=== PATIENT | male | born 1955 | race African-American/Black ===

== ENCOUNTER 2023-04-22 00:17 | Inpatient (IN) | payer MEDICARE, OTHER ==
[~2023-04-22] VITALS: Ht 121.9 cm; Wt 73.5 kg
[2023-04-22] MEDS ORDERED: PANTOPRAZOLE 40 MG VIAL ONE ×2 (00:48→08:35)
[2023-04-22] MEDS: PANTOPRAZOLE 40 MG VIAL IV ONE (00:49)
[2023-04-22 00:51] LABS: BASOPHILS % (AUTO) 0.3 % (0.0-2.0); EOSINOPHILS % (AUTO) 0.3 % (0.0-6.0); HEMATOCRIT 48 % (39-51); HEMOGLOBIN 15.8 g/dL (13.5-17.5); LYMPHOCYTES # (AUTO) 0.9 K/uL (0.8-4.8); LYMPHOCYTES % (AUTO) 8.8 % (20.0-44.0); MEAN CORPUSCULAR HEMOGLOBIN 29 PG (26.0-33.0); MEAN CORPUSCULAR HGB CONC 33 g/dl (31.0-36.0); MEAN CORPUSCULAR VOLUME 90 fL (80-96); MONOCYTES # (AUTO) 0.7 K/uL (0.1-1.30); MONOCYTES % (AUTO) 6.7 % (2.0-12.0); NEUTROPHILS # (AUTO) 8.2 K/uL (1.8-8.9); NEUTROPHILS % (AUTO) 83.9 % (43.0-81.0); PLATELET COUNT (AUTO) 261 K/uL (150-450); RED BLOOD CELL COUNT(AUTO) 5.39 MIL/uL (4.5-6.0); RED CELL DISTRIBUTION WIDTH 18.2 % (11.5-15.0); WHITE BLOOD COUNT (AUTO) 9.8 K/uL (4.3-11.0)
[2023-04-22 01:00] LABS: CALCIUM, SERUM 9.2 mg/dL (8.5-10.1); CARBON DIOXIDE 25 mmol/L (21-32); CHLORIDE 89 mmol/L (98-107); CREATININE 3.1 mg/dL (0.6-1.3); GLUCOSE 72 mg/dL (74-106); POTASSIUM 3.1 mmol/L (3.5-5.1); SODIUM SERUM 130 mmol/L (136-145); UREA NITROGEN, BLOOD 57 mg/dL (7-18)
[2023-04-22 01:12] LABS: ALANINE AMINOTRANSFERASE 56 U/L (12-78); ALBUMIN 3.4 g/dL (3.4-5.0); ALKALINE PHOSPHATASE 197 U/L (46-116); ASPARTATE AMINOTRANSFERASE 50 U/L (15-37); BILIRUBIN,TOTAL 3.7 mg/dL (0.2-1.0); LIPASE 14 U/L (16-77); NT-PRO BNP > 25000 pg/mL (0-125); TOTAL PROTEIN, SERUM 8.3 g/dL (6.4-8.2)
[2023-04-22] MEDS: POTASSIUM CHLORIDE 20 MEQ TAB.PRT.SR PO ONE (01:30)
[2023-04-22] MEDS ORDERED: POTASSIUM CHLORIDE 20 MEQ TAB.PRT.SR PO ONE (03:05)
[2023-04-22] MEDS ORDERED: Z GUARD REMEDY 4 OZ OINT TP PRN (04:30)
[2023-04-22] MEDS ORDERED: ONDANSETRON HCL/PF 4 MG/2 ML VIAL IVP PRN (04:30)
[2023-04-22] MEDS: ZOSYN IVPB 2.25 G in IV D5W 50ml IV SCH (06:23)
[2023-04-22] MEDS ORDERED: MORPHINE SULFATE INJ 4 MG/ML DISP.SYRIN IV PRN (06:30)
[2023-04-22 08:30] VITALS: BP 140/90; TEMP 97.7; O2SAT 98
[2023-04-22] MEDS: PANTOPRAZOLE 40 MG VIAL IV SCH (08:39)
[2023-04-22 10:00] VITALS: BP 120/90; TEMP 97.5; O2SAT 95
[2023-04-22 12:00] VITALS: BP 141/71; TEMP 97.6; O2SAT 94
[2023-04-22 16:08] VITALS: BP 143/98; TEMP 97.9; O2SAT 99
[2023-04-22] MEDS ORDERED: DEXTROSE 50%-WATER 50 ML DISP.SYRIN IV PRN (17:00)
[2023-04-22] MEDS: BLOOD SUGAR DIAGNOSTIC 1 EACH STRIP IN SCH (17:32)
[2023-04-22] MEDS: IV D5/ 0.9% NACL 1,000 ML IV PRN (17:38)
[2023-04-22 20:00] VITALS: BP 143/98; TEMP 97.9; O2SAT 99
[2023-04-22 21:55] VITALS: BP 108/79; TEMP 97.9; O2SAT 100
[2023-04-22] MEDS: INSULIN REGULAR, HUMAN 100 UNIT/ML 3 ML VIAL SQ PRN (22:35)
[2023-04-22] MEDS ORDERED: BISACODYL SUPP (10 MG) 10 MG/SUPP.RECT SUPP.RECT RC PRN (23:00)
[2023-04-22] MEDS ORDERED: ONDANSETRON HCL/PF 4 MG/2 ML VIAL IV PRN (23:00)
[2023-04-23] VITALS (7 sets, daily range): BP systolic 97–140; BP diastolic 69–96; TEMP 97.4–98.2; O2SAT 95–100
[2023-04-23 07:24] LABS: BASOPHILS # (AUTO) 0.1 K/uL (0.0-0.2); BASOPHILS % (AUTO) 0.7 % (0.0-2.0); EOSINOPHILS % (AUTO) 0.4 % (0.0-6.0); HEMATOCRIT 47 % (39-51); HEMOGLOBIN 15.7 g/dL (13.5-17.5); LYMPHOCYTES # (AUTO) 0.8 K/uL (0.8-4.8); MEAN CORPUSCULAR HEMOGLOBIN 30 PG (26.0-33.0); MEAN CORPUSCULAR HGB CONC 33 g/dl (31.0-36.0); MEAN CORPUSCULAR VOLUME 89 fL (80-96); MONOCYTES # (AUTO) 0.8 K/uL (0.1-1.30); MONOCYTES % (AUTO) 10.5 % (2.0-12.0); NEUTROPHILS # (AUTO) 5.8 K/uL (1.8-8.9); NEUTROPHILS % (AUTO) 77.4 % (43.0-81.0); PLATELET COUNT (AUTO) 218 K/uL (150-450); RED BLOOD CELL COUNT(AUTO) 5.29 MIL/uL (4.5-6.0); RED CELL DISTRIBUTION WIDTH 18.3 % (11.5-15.0); WHITE BLOOD COUNT (AUTO) 7.5 K/uL (4.3-11.0)
[2023-04-23 07:37] LABS: INR 1.52 (0.91-1.10); PROTHROMBIN TIME 15.7 SECS (9.2-11.1)
[2023-04-23 07:44] LABS: BILIRUBIN,DIRECT 2.7 mg/dL (0.0-0.2); BILIRUBIN,TOTAL 4.1 mg/dL (0.2-1.0); CALCIUM, SERUM 8.9 mg/dL (8.5-10.1); CREATININE 2.8 mg/dL (0.6-1.3); MAGNESIUM 2.7 mg/dL (1.8-2.4); PHOSPHORUS 3.7 mg/dL (2.5-4.9); POTASSIUM 3.1 mmol/L (3.5-5.1); TOTAL PROTEIN, SERUM 7.3 g/dL (6.4-8.2)
[2023-04-23] MEDS: PANTOPRAZOLE 40 MG TABLET.DR PO SCH (09:00)
[2023-04-23] MEDS: ASPIRIN 81 MG TAB.CHEW PO SCH (09:00)
[2023-04-23] MEDS: DOCUSATE SODIUM 100 MG CAPSULE PO SCH (09:00)
[2023-04-23 09:32] LABS: THYROID STIMULATING HORMONE 1.199 uIU/mL (0.358-3.74)
[2023-04-23] MEDS ORDERED: ASPI-1169 PO (09:47)
[2023-04-23] MEDS ORDERED: FLUT16SP16 BNOSTRILS (09:47)
[2023-04-23] MEDS ORDERED: VERQUVO PO (09:47)
[2023-04-23] MEDS ORDERED: OLOP2.5D12 EACHEYE (09:47)
[2023-04-23] MEDS ORDERED: DICL100G26 TP (09:47)
[2023-04-23] MEDS ORDERED: METO5TAB7 PO (09:47)
[2023-04-23] MEDS ORDERED: CLOT15CR27 TP (09:47)
[2023-04-23] MEDS ORDERED: ACET-2605 PO (09:47)
[2023-04-23] MEDS ORDERED: ATOR80TA PO (09:47)
[2023-04-23] MEDS ORDERED: ERGO500040 PO (09:47)
[2023-04-23] MEDS ORDERED: DAPA10TA PO (09:47)
[2023-04-23] MEDS ORDERED: ISOS30TA86 PO (09:47)
[2023-04-23] MEDS ORDERED: IPRA12.9 IH (09:47)
[2023-04-23] MEDS ORDERED: SACU1TAB7 PO (09:47)
[2023-04-23] MEDS ORDERED: METO-357 PO (09:47)
[2023-04-23] MEDS ORDERED: TIOT18CA3 IH (09:47)
[2023-04-23] MEDS ORDERED: FURO-144 PO (09:47)
[2023-04-23] MEDS ORDERED: ALFU10TA10 PO (09:47)
[2023-04-23] MEDS ORDERED: FLUTICASONE PROPIONATE 16 GM BOTTLE NS PRN (11:00)
[2023-04-23] MEDS ORDERED: IPRATROPIUM NEB FS 0.5 MG/2.5 ML AMPUL.NEB NEB PRN (11:00)
[2023-04-23] MEDS: IPRATROPIUM NEB FS 0.5 MG/2.5 ML AMPUL.NEB NEB SCH (12:30)
[2023-04-23] MEDS ORDERED: OLOPATADINE HCL 0.1% OPHTH BOTTLE EACHEYE PRN (12:30)
[2023-04-23] MEDS: POTASSIUM CL. PREMIX PERIPHER. 50 ML IV SCH (12:40)
[2023-04-23] MEDS: THERAHONEY GEL 1.5 OZ TUBE TP SCH (12:43)
[2023-04-23] MEDS ORDERED: DICLOFENAC TOPICAL 100 GM TUBE TP PRN (13:00)
[2023-04-23] MEDS: ZOSYN IVPB 2.25 G in IV D5W 50ml IV SCH (13:38)
[2023-04-23] MEDS: LACTULOSE 10 G/15 ML UDC (PYXIS) PO SCH (17:51)
[2023-04-23] MEDS: CLOTRIMAZOLE 1% 15 GM TUBE TP SCH (17:51)
[2023-04-23] MEDS: SACUBITRIL/VALSARTAN 1 EACH TABLET PO SCH (17:52)
[2023-04-23] MEDS: SENNOSIDES 8.6 MG TABLET PO SCH (21:33)
[2023-04-24] VITALS (14 sets, daily range): BP systolic 100–129; BP diastolic 62–98; TEMP 98–98.6; O2SAT 95–100
[2023-04-24] MEDS: IPRATROPIUM NEB FS 0.5 MG/2.5 ML AMPUL.NEB NEB SCH (02:11)
[2023-04-24 07:31] LABS: BASOPHILS % (AUTO) 0.5 % (0.0-2.0); EOSINOPHILS % (AUTO) 0.4 % (0.0-6.0); HEMATOCRIT 44 % (39-51); HEMOGLOBIN 14.5 g/dL (13.5-17.5); LYMPHOCYTES # (AUTO) 0.6 K/uL (0.8-4.8); LYMPHOCYTES % (AUTO) 7.3 % (20.0-44.0); MEAN CORPUSCULAR HEMOGLOBIN 30 PG (26.0-33.0); MEAN CORPUSCULAR HGB CONC 33 g/dl (31.0-36.0); MEAN CORPUSCULAR VOLUME 90 fL (80-96); MONOCYTES # (AUTO) 0.6 K/uL (0.1-1.30); MONOCYTES % (AUTO) 7.9 % (2.0-12.0); NEUTROPHILS # (AUTO) 6.4 K/uL (1.8-8.9); NEUTROPHILS % (AUTO) 83.9 % (43.0-81.0); PLATELET COUNT (AUTO) 196 K/uL (150-450); RED BLOOD CELL COUNT(AUTO) 4.88 MIL/uL (4.5-6.0); RED CELL DISTRIBUTION WIDTH 18.5 % (11.5-15.0); WHITE BLOOD COUNT (AUTO) 7.7 K/uL (4.3-11.0)
[2023-04-24 07:48] LABS: ALBUMIN 2.5 g/dL (3.4-5.0); BILIRUBIN,TOTAL 3.1 mg/dL (0.2-1.0); CALCIUM, SERUM 8.3 mg/dL (8.5-10.1); CREATININE 2.3 mg/dL (0.6-1.3); TOTAL PROTEIN, SERUM 6.4 g/dL (6.4-8.2)
[2023-04-24 08:35] LABS: POTASSIUM 2.8 mmol/L (3.5-5.1)
[2023-04-24] MEDS ORDERED: Medication Not On Formulary EA (Alfuzosin Hcl 10 MG) PO SCH (09:00)
[2023-04-24 09:08] LABS: PTH, INTACT 92 pg/mL (15-65)
[2023-04-24] MEDS ORDERED: POTASSIUM CL. PREMIX PERIPHER. 50 ML IV SCH (10:00)
[2023-04-24] MEDS: POTASSIUM CHLORIDE 20 MEQ TAB.PRT.SR PO SCH (10:11)
[2023-04-24] MEDS: METOPROLOL SUCCINATE 50 MG TAB.SR.24H PO SCH (10:45)
[2023-04-24] MEDS: ASPIRIN 81 MG TAB.CHEW PO SCH (10:51)
[2023-04-24 11:07] LABS: *SPE A/G RATIO 0.8 (0.7-1.7); *SPE ALBUMIN 3.1 g/dL (2.9-4.4); *SPE ALPHA-1-GLOBULIN 0.3 g/dL (0.0-0.4); *SPE ALPHA-2-GLOBULIN 0.5 g/dL (0.4-1.0); *SPE BETA GLOBULIN 0.9 g/dL (0.7-1.3); *SPE GLOBULIN, TOTAL 3.7 g/dL (2.2-3.9); *SPE M-SPIKE Not Observed g/dL (Not Observed); *SPE PROTEIN TOTAL 6.8 g/dL (6.0-8.5)
[2023-04-24] MEDS: DAPAGLIFLOZIN PROPANEDIOL 5 MG TABLET PO SCH (11:23)
[2023-04-24] MEDS: ISOSORBIDE MONONITRATE (30MG) 30 MG TAB.SR.24H PO SCH (12:00)
[2023-04-24 14:07] LABS: HBSAG SCREEN Negative (Negative); HEPATITIS A AB, IgM Negative (Negative); HEPATITIS B CORE AB, IgM Negative (Negative)
[2023-04-25] VITALS (10 sets, daily range): BP systolic 97–102; BP diastolic 64–75; TEMP 98.2–99; O2SAT 96–100
[2023-04-25 06:59] LABS: BASOPHILS % (AUTO) 0.5 % (0.0-2.0); EOSINOPHILS % (AUTO) 0.5 % (0.0-6.0); HEMATOCRIT 44 % (39-51); HEMOGLOBIN 14.3 g/dL (13.5-17.5); LYMPHOCYTES # (AUTO) 0.5 K/uL (0.8-4.8); LYMPHOCYTES % (AUTO) 6.5 % (20.0-44.0); MEAN CORPUSCULAR HEMOGLOBIN 30 PG (26.0-33.0); MEAN CORPUSCULAR HGB CONC 33 g/dl (31.0-36.0); MEAN CORPUSCULAR VOLUME 90 fL (80-96); MONOCYTES # (AUTO) 0.8 K/uL (0.1-1.30); MONOCYTES % (AUTO) 9.4 % (2.0-12.0); NEUTROPHILS # (AUTO) 6.8 K/uL (1.8-8.9); NEUTROPHILS % (AUTO) 83.1 % (43.0-81.0); PLATELET COUNT (AUTO) 190 K/uL (150-450); RED BLOOD CELL COUNT(AUTO) 4.86 MIL/uL (4.5-6.0); WHITE BLOOD COUNT (AUTO) 8.1 K/uL (4.3-11.0)
[2023-04-25 07:28] LABS: ALBUMIN 2.4 g/dL (3.4-5.0); BILIRUBIN,TOTAL 2.5 mg/dL (0.2-1.0); CALCIUM, SERUM 8.3 mg/dL (8.5-10.1); CREATININE 2.1 mg/dL (0.6-1.3); MAGNESIUM 2.3 mg/dL (1.8-2.4); PHOSPHORUS 2.2 mg/dL (2.5-4.9); POTASSIUM 3.7 mmol/L (3.5-5.1); TOTAL PROTEIN, SERUM 6.5 g/dL (6.4-8.2)
[2023-04-25] MEDS ORDERED: LEVO500T90 PO (09:59)
[2023-04-25] MEDS: POTASSIUM CHLORIDE 20 MEQ TAB.PRT.SR PO SCH (11:00)
[2023-04-25] MEDS: FUROSEMIDE 40 MG/4 ML VIAL IV SCH (11:04)
[2023-04-25] MEDS: NEUTRA PHOS 1 POWD.PACKET PO ONE (16:26)
[2023-04-29] MEDS ORDERED: ERGOCALCIFEROL (VITAMIN D 2) 50,000 UNIT CAPSULE PO SCH (10:00)
== END 2023-04-25 17:30 | disposition home health service (06) ==
LOC: ER 00:23 → TELE 09:21
PROVIDERS: ADMIT Nurse Practitioner Acute Care; ATTEND Internal Medicine
DX: K80.66 Calculus of gallbladder and bile duct with acute and chronic cholecystitis without obstruction (principal); N17.0 Acute kidney failure with tubular necrosis; G93.41 Metabolic encephalopathy; L89.323 Pressure ulcer of left buttock, stage 3; L89.313 Pressure ulcer of right buttock, stage 3; I21.A1 Myocardial infarction type 2; I13.0 Hypertensive heart and chronic kidney disease with heart failure and stage 1 through stage 4 chronic kidney disease, or unspecified chronic kidney disease; I50.22 Chronic systolic (congestive) heart failure; K92.2 Gastrointestinal hemorrhage, unspecified; E87.1 Hypo-osmolality and hyponatremia; R16.0 Hepatomegaly, not elsewhere classified; N18.9 Chronic kidney disease, unspecified; E87.6 Hypokalemia; F17.210 Nicotine dependence, cigarettes, uncomplicated; F20.9 Schizophrenia, unspecified; F32.A Depression, unspecified; I25.10 Atherosclerotic heart disease of native coronary artery without angina pectoris; Z89.612 Acquired absence of left leg above knee; Z89.611 Acquired absence of right leg above knee; Z88.1 Allergy status to other antibiotic agents; Z71.6 Tobacco abuse counseling; E11.51 Type 2 diabetes mellitus with diabetic peripheral angiopathy without gangrene; L98.499 Non-pressure chronic ulcer of skin of other sites with unspecified severity; F14.10 Cocaine abuse, uncomplicated; M89.8X9 Other specified disorders of bone, unspecified site; R18.8 Other ascites; F10.20 Alcohol dependence, uncomplicated
CPT/HCPCS: 36415; 71045-TC; 76700-TC; 76770-TC; 78226; 80053-TC; 80061-TC; 80076-TC; 82140-TC; 82550-TC; 82553; 82962-TC; 83690-TC; 83735-TC; 83880; 83970; 84100-TC; 84155; 84165; 84443-TC; 84484-TC; 85025-TC; 85610-TC; 92526; 92611-TC; 93307-TC; 94799-TC; A4223; A6403; A9537; C9113; G0378; J1815; J1940; J2543; J3480; J3490; J7030; J7040; J7042; J7060

== ENCOUNTER 2023-10-11 21:59 | Inpatient (IN) | payer MEDICARE, OTHER ==
[~2023-10-11] VITALS: Ht 96.5 cm; Wt 68.0 kg
[~2023-10-11 21:59] MED LIST: ACET-2605 PO; ALFU10TA10 PO; ASPI-1169 PO; ATOR80TA PO; CLOT15CR27 TP; DAPA10TA PO; DICL100G26 TP; ERGO500040 PO; FLUT16SP16 BNOSTRILS; FURO-144 PO; IPRA12.9 IH; ISOS30TA86 PO; LEVO500T90 PO; METO-357 PO; METO5TAB7 PO; OLOP2.5D12 EACHEYE; SACU1TAB7 PO; TIOT18CA3 IH; VERQUVO PO
--- NOTE | 2023-10-11 22:13 | NUR ---
BIB39 FROM HOME C/O SOB, JUST D/C FROM [facility] FOR CHF & RUE CELLULITIS. SATTING 90% R.A. HD DONE TODAY.
--- NOTE | 2023-10-11 22:21 | NUR ---
COVID AND INFLUENZA SWAB COLLECTED AND SENT TO LAB
--- NOTE | 2023-10-11 22:23 | NUR ---
blood sent to lab
[2023-10-11 22:33] LABS: BASOPHILS % (AUTO) 0.2 % (0.0-2.0); HEMATOCRIT 36 % (39-51); HEMOGLOBIN 11.6 g/dL (13.5-17.5); LYMPHOCYTES # (AUTO) 0.2 K/uL (0.8-4.8); LYMPHOCYTES % (AUTO) 2.5 % (20.0-44.0); MEAN CORPUSCULAR HEMOGLOBIN 29 PG (26.0-33.0); MEAN CORPUSCULAR HGB CONC 32 g/dl (31.0-36.0); MEAN CORPUSCULAR VOLUME 90 fL (80-96); MONOCYTES # (AUTO) 0.5 K/uL (0.1-1.30); MONOCYTES % (AUTO) 6.9 % (2.0-12.0); NEUTROPHILS # (AUTO) 7.1 K/uL (1.8-8.9); NEUTROPHILS % (AUTO) 90.4 % (43.0-81.0); PLATELET COUNT (AUTO) 162 K/uL (150-450); WHITE BLOOD COUNT (AUTO) 7.8 K/uL (4.3-11.0)
[2023-10-11 22:48] LABS: INR 1.45 (0.91-1.10); PARTIAL THROMBOPLASTIN TIME 31.6 SEC (24.3-34.3)
[2023-10-11] MEDS ORDERED: AZITHROMYCIN 500 MG VIAL ONE (23:00)
[2023-10-11] MEDS ORDERED: CEFTRIAXONE 1GM BAG (ER ONLY) 50 ML IV ONE (23:00)
[2023-10-11] MEDS: CEFTRIAXONE 1GM BAG (ER ONLY) 1 GM/50 ML PIGGYBACK IV ONE (23:10)
[2023-10-11 23:12] LABS: CALCIUM, SERUM 8.5 mg/dL (8.5-10.1); CARBON DIOXIDE 28 mmol/L (21-32); CHLORIDE 99 mmol/L (98-107); GLUCOSE 99 mg/dL (74-106); POTASSIUM 3.7 mmol/L (3.5-5.1); SODIUM SERUM 138 mmol/L (136-145); UREA NITROGEN, BLOOD 37 mg/dL (7-18)
[2023-10-11 23:22] LABS: ALANINE AMINOTRANSFERASE 117 U/L (12-78); ALBUMIN 2.7 g/dL (3.4-5.0); ALKALINE PHOSPHATASE 160 U/L (46-116); ASPARTATE AMINOTRANSFERASE 97 U/L (15-37); BILIRUBIN,DIRECT 2.1 mg/dL (0.0-0.2); BILIRUBIN,TOTAL 3.2 mg/dL (0.2-1.0); NT-PRO BNP > 25000 pg/mL (0-125); TOTAL PROTEIN, SERUM 7.4 g/dL (6.4-8.2)
[2023-10-11 23:23] LABS: LACTIC ACID 3.6 mmol/L (0.4-2.0)
[2023-10-11] MEDS: AZITHROMYCIN 500 MG in IV D5W 250 ML IV ONE (23:48)
[2023-10-11] MEDS ORDERED: FUROSEMIDE 40 MG/4 ML VIAL ONE (23:50)
[2023-10-11] MEDS ORDERED: ASPIRIN EC 325 MG TABLET.DR PO ONE (23:50)
[2023-10-11] MEDS ORDERED: ASPIRIN 325 MG TABLET ONE (23:52)
[2023-10-11] MEDS: ASPIRIN 325 MG TABLET PO ONE (23:53)
[2023-10-11] MEDS: FUROSEMIDE 40 MG/4 ML VIAL IV ONE (23:53)
[2023-10-12] VITALS (11 sets, daily range): BP systolic 105–128; BP diastolic 63–88; TEMP 97.3–98.3; O2SAT 94–100
--- NOTE | 2023-10-12 00:47 | NUR ---
repotrt given to donya mackay ni for jose manuel.
--- NOTE | 2023-10-12 00:50 | NUR ---
MARBLE RUBBERFUSION OPERATOR NOTES ADMITTED A 68Y/O BLACK MALE VIA GURNEY TO ROOM 119-2, AFTER RECEIVING REPORT FROM SHAWN LAWS-RN. WITH ADMITTING DX: PNEUMONIA; CHF. PATIENT ALERT ORIENTED TO NAME ONLY, CONFUSED, STATED HE'S AT [facility], REALITY REORIENTATION RENDERED. DENIES PAIN AT THIS TIME. WITH O2 INHALATION @ 2LPM VIA NC, WELL TOLERATED, SPO2 99-100%, WITH EPISODES OF SHORTNESS OF BREATH NOTED, KEPT HEAD ELEVATED TO PATIENT'S COMFORT. WITH IV ACCESS ON LEFT WRIST #20G, SL, FLUSHES WELL. BODY ASSESSMENT DONE WITH 1 STAFF PRESENT, PICTURES TAKEN AND LOGGED, FOR WOUND CONSULT. PATIENT IS AKA. PUREWICK PLACED, ATTACHED TO WALL SUCTION. VS: 108/78, 72, 25, 97.5, 0/10, O2 SAT 99%. NEEDS ATTENDED. SAFETY MEASURES IN PLACE, CALL LIGHT WITHIN EASY REACH. PLAN OF CARE INITIATED.
--- NOTE | 2023-10-12 00:53 | NUR ---
PT TRANSFERRING TO 108 VIA ACLS PROTOCOL. VSS. ALL BELONGINGS WITH PT.
[2023-10-12] MEDS ORDERED: MAG HYDROX/AL HYDROX/SIMETH 30 ML UDC PO PRN (01:00)
[2023-10-12] MEDS ORDERED: ONDANSETRON HCL/PF 4 MG/2 ML VIAL IVP PRN (01:00)
[2023-10-12] MEDS ORDERED: FLUTICASONE PROPIONATE 16 GM BOTTLE NS PRN (01:00)
[2023-10-12] MEDS ORDERED: ENOXAPARIN SODIUM 40 MG/0.4 ML DISP.SYRIN SQ SCH (01:00)
[2023-10-12] MEDS ORDERED: MAGNESIUM HYDROXIDE 30 ML UDC PO PRN (01:00)
--- NOTE | 2023-10-12 02:53 | NUR ---
RN NOTES RECEIVED CALLED FROM JULIENNE IN LAB, RE: LACTIC ACID LEVEL: 5.7. PAGED TUAN CHIANG NP VIA [facility], AWAITING CALL BACK.
--- NOTE | 2023-10-12 03:05 | NUR ---
RN NOTES TUAN CHIANG NP CALLED BACK, RELAYED LACTIC LEVEL 5.7 WITH ORDERS: REPEAT LACTIC ACID AFTER 4HRS; REPEAT TROPONIN NOW AND 6HRS AFTER; NEPHRO CONSULT AND CARDIO CONSULT, NOTED AND CARRIED OUT. CALLED LAB FOR TROPONIN STAT C/O JULIENNE.
--- NOTE | 2023-10-12 04:29 | NUR ---
RN NOTES RECEIVED TROPONIN RESULT: [id number] (496 IN ER) C/O TREASURE FROM LAB.
--- NOTE | 2023-10-12 04:35 | NUR ---
RN NOTES CALLED AND PAGED TUAN CHIANG SURVEILLANCE TECHNICIAN VIA [employer], SURVEILLANCE TECHNICIAN CALLED BACK, RELAYED LATEST TROPONIN LEVEL 379 (496 IN ER) WITH NO NEW ORDER GIVEN AT THIS TIME. TO REPEAT IN 6HRS (0900) ORDERED EARLIER.
--- NOTE | 2023-10-12 06:45 | NUR ---
GEOTHERMAL PRODUCTION MANAGER CLOSING NOTES PATIENT ASLEEP, STILL WITH CONFUSION NOTED, REALITY REORIENTATION PROVIDED. DENIES PAIN AT THIS TIME. WITH O2 INHALATION @ 2LPM VIA NC, WELL TOLERATED, SPO2 99%, WITH EPISODES OF SHORTNESS OF BREATH NOTED AT TIMES, KEPT HEAD ELEVATED TO PATIENT'S COMFORT. SLEPT INTERMITTENTLY DURING SHIFT. WITH RUC PERMCATH INTACT WITH DRY DRESSING. WITH IV ACCESS ON LEFT WRIST #20G, SL, FLUSHES WELL. ON PUREWICK ATTACHED TO WALL SUCTION. NEEDS ATTENDED, INCONTINENCE CARE PROVIDED. SAFETY MEASURES IN PLACE, CALL LIGHT WITHIN EASY REACH. WILL ENDORSE TO ONCOMING RN FOR CONTINUITY OF CARE.
[2023-10-12] MEDS ORDERED: OLOPATADINE HCL 0.1% OPHTH BOTTLE EACHEYE PRN (07:00)
--- NOTE | 2023-10-12 07:10 | NUR ---
RN OPENING NOTES RECEIVED PT IN BED, AWAKE, A/O X 2-3, WITH CONFUSION. ON 2LPM VIA NC, TOLERATING WELL. NO SOB NOTED AT THIS TIME. ON TELE MONITOR CURRENTLY READING SR, HR 69 BPM. IV ACCESS ON LEFT WRIST #20G, PATENT AND INTACT, SL. WITH RUC PERMCATH C/D/I. WITH PUREWICK IN PLACE DRAINING URINE VIA SUCTION. SAFETY MEASURES IMPLEMENTED, BED IN LOWEST LOCKED POSITION, BED ALARM ON, SIDE RAILS UP X3, CALL LIGHT WITHIN REACH. WILL CONTINUE PLAN OF CARE.
--- NOTE | 2023-10-12 07:31 | NUR ---
RN NOTES RECEIVED LATEST LACTIC LEVEL 5.4 FROM LAB, TRENDING DOWN. ENDORSED TO ONCOMING RN.
--- NOTE | 2023-10-12 07:45 | NUR ---
RN NOTE PER WEBSPHERE PORTAL ARCHITECT SPREADER PT BANGING HEAD AGAINST SIDE RAILS. DURING PT ROUNDING PT VERBALIZING HE WANTS TO AND ASKING FOR HELP AND/OR MEDICATION BE GIVEN TO HIM TO HELP HIM . CHARGE NURSE AND MD NOTIFIED. SUICIDE PRECAUTIONS IMPLEMENTED.
[2023-10-12] MEDS: IPRATROPIUM NEB FS 0.5 MG/2.5 ML AMPUL.NEB NEB SCH (07:47)
[2023-10-12] MEDS ORDERED: APIX5TAB PO (08:21)
[2023-10-12] MEDS ORDERED: HYDR-4075 PO (08:21)
[2023-10-12] MEDS ORDERED: DIGO125T PO (08:21)
[2023-10-12] MEDS: PANTOPRAZOLE 40 MG VIAL IV SCH (08:21)
[2023-10-12] MEDS: METOLAZONE 2.5 MG TABLET PO SCH (08:21)
[2023-10-12] MEDS: SACUBITRIL/VALSARTAN 49/51MG TABLET PO SCH (08:22)
[2023-10-12] MEDS: ATORVASTATIN 40 MG TABLET PO SCH (08:22)
[2023-10-12] MEDS: FUROSEMIDE 40 MG/4 ML VIAL IV SCH (08:22)
[2023-10-12] MEDS: ASPIRIN 81 MG TAB.CHEW PO SCH (08:22)
[2023-10-12] MEDS: METOPROLOL SUCCINATE 50 MG TAB.SR.24H PO SCH (08:30)
[2023-10-12] MEDS: ISOSORBIDE MONONITRATE (30MG) 30 MG TAB.SR.24H PO SCH (08:30)
[2023-10-12] MEDS: DICLOFENAC TOPICAL 100 GM TUBE TP SCH (08:31)
[2023-10-12] MEDS: CLOTRIMAZOLE 1% 15 GM TUBE TP SCH (08:31)
[2023-10-12] MEDS ORDERED: VERQUVO 2.5 MG PO SCH (09:00)
[2023-10-12] MEDS: HEPARIN SODIUM, PORCINE 5000 UNITS/1 ML VIAL SQ SCH (09:00)
[2023-10-12] MEDS ORDERED: Medication Not On Formulary EA (Alfuzosin Hcl 10 MG) PO SCH (09:00)
--- NOTE | 2023-10-12 09:19 | NUR ---
WOUND CARE CONSULT: RECEIVED REQUEST FROM NURSING STAFF FOR WOUND CONSULT. PT PRESENTS WITH BILATERAL BUTTOCK STAGE 3 ULCERS, SACRAL SCARRING AND LEFT ELBOW STAGE 4 PRESSURE ULCER, ALL PRESENT ON ADMISSION. 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 DISCUSSED SKIN PROTECTION AND WOUND TREATMENT RECOMMENDATIONS WITH NURSING STAFF. DR OSMAN CALLED FOR SURGICAL CONSULT. IN AGREEMENT WITH PLAN OF CARE. Addendum: 10/12/23 at 0921 by ARI TO WNDNU Amended: Links added.
[2023-10-12] MEDS ORDERED: Z GUARD REMEDY 4 OZ OINT TP PRN (09:30)
--- NOTE | 2023-10-12 09:30 | NUR ---
RN NOTE PT PROVIDED WITH 1:1 SITTER.
[2023-10-12] MEDS: Z GUARD REMEDY 4 OZ OINT TP SCH (09:49)
[2023-10-12] MEDS: THERAHONEY GEL 1.5 OZ TUBE TP SCH (09:55)
--- NOTE | 2023-10-12 10:00 | NUR ---
RN NOTE CRITICAL LAB RESULT FROM LAB, TROPONIN 477 AND PROCALCITONIN 2.72, MD KWONG NOTIFIED.
--- NOTE | 2023-10-12 10:40 | NUR ---
JAZMYN MOORE GAVE REPORT TO JAZMYN ROGERS FOR MARIA M.
[2023-10-12] MEDS: SERTRALINE HCL 25 MG TABLET PO SCH (13:58)
[2023-10-12] MEDS: risperiDONE 0.25 MG TABLET PO SCH (16:32)
--- NOTE | 2023-10-12 18:49 | NUR ---
RN CLOSING NOTES RECEIVED PT IN BED, AWAKE, A/O X 2-3, WITH CONFUSION. ON 2LPM VIA NC, TOLERATING WELL. NO SOB NOTED AT THIS TIME. ON TELE MONITOR CURRENTLY READING SR WITH BBB. IV ACCESS ON L WRIST 20G, SL, PATENT AND INTACT. WITH RUC PERMCATH C/D/I. WITH PUREWICK IN PLACE DRAINING URINE VIA SUCTION. ALL MEDICATIONS PROVIDED, PTS NEEDS MET, PT AND LINENS ARE CLEANED AND CHANGED. SAFETY MEASURES IMPLEMENTED, BED IN LOWEST LOCKED POSITION, BED ALARM ON, SIDE RAILS UP X3, CALL LIGHT WITHIN REACH. WILL ENDORSE PLAN OF CARE.
--- NOTE | 2023-10-12 19:30 | NUR ---
RN OPENING NOTES RECEIVED PATIENT IN BED WITH 1:1 SITTER FOR HOLD PATIENT. PATIENT ALERT ORIENTED X4.ON 4L OF OXYGEN 100% TITRATE TO 2L WITHIN NORMAL LIMITS NO COMPLAINTS OF SIGN'S AND SYMPTOMS OF ACUTE DISTRESS NOTE AT THIS TIME. IV ACCESS ON AT LEFT WRIST 20G. AND RUC PERMACATH FOR DIALYSIS. MEDICATION GIVEN .PLAN OF CARE ONGOING. 2137 DIALYSIS 2122 TRANSFER OF CARE TO SARAH ELDRIDGE
[2023-10-12] MEDS: AZITHROMYCIN 500 MG in IV D5W 250 ML IV SCH (20:42)
--- NOTE | 2023-10-12 21:38 | NUR ---
ASSESSMENT MANAGER NOTES RECEIVED PTS IN BED FROM JAZMYN COOK FOR CONTINUITY OF CARE . FOR HEMODIALYSIS TONITE.
[2023-10-12] MEDS: CEFTRIAXONE 1 G in IV D5W 50 ML IV SCH (22:29)
--- NOTE | 2023-10-12 22:30 | NUR ---
television anchor notes 2230hrs :Hd nurse at bedside hemodialysis treatment started .
[2023-10-13] VITALS (15 sets, daily range): BP systolic 94–112; BP diastolic 50–72; TEMP 97.5–98.2; O2SAT 94–100
--- NOTE | 2023-10-13 01:00 | NUR ---
teletype clerk notes hd treatment completed at 0100hrs vital sign stable bp 111/68 hr 63 rr 20 temp 97.9 dhd output is 1550 weight of 149lbs
[2023-10-13] MEDS: TEMAZEPAM 7.5 MG CAPSULE PO PRN (01:27)
--- NOTE | 2023-10-13 07:09 | NUR ---
RN CLOSING NOTES PT IN BED, AWAKE, A/O X 2-3, WITH CONFUSION. ON 2LPM VIA NC, TOLERATING WELL. NO SOB NOTED AT THIS TIME. ON TELE MONITOR CURRENTLY READING SR -58 WITH BBB. IV ACCESS ON L WRIST 20G, SL, PATENT AND INTACT. WITH RUC PERMCATH C/D/I. WITH PUREWICK IN PLACE DRAINING URINE VIA SUCTION. ALL NEEDS MET, CONTINUE ON 1:1 SITTER FOR SAFETY.SAFETY MEASURES IMPLEMENTED, BED IN LOWEST LOCKED POSITION, BED ALARM ON, SIDE RAILS UP X3, CALL LIGHT WITHIN REACH. WILL ENDORSE PLAN OF CARE.
[2023-10-13 07:10] LABS: BASOPHILS % (AUTO) 0.1 % (0.0-2.0); EOSINOPHILS % (AUTO) 0.1 % (0.0-6.0); HEMATOCRIT 32 % (39-51); HEMOGLOBIN 10.4 g/dL (13.5-17.5); LYMPHOCYTES # (AUTO) 0.3 K/uL (0.8-4.8); LYMPHOCYTES % (AUTO) 3.5 % (20.0-44.0); MEAN CORPUSCULAR HEMOGLOBIN 29 PG (26.0-33.0); MEAN CORPUSCULAR HGB CONC 33 g/dl (31.0-36.0); MEAN CORPUSCULAR VOLUME 90 fL (80-96); MONOCYTES # (AUTO) 0.8 K/uL (0.1-1.30); MONOCYTES % (AUTO) 10.7 % (2.0-12.0); NEUTROPHILS # (AUTO) 6.2 K/uL (1.8-8.9); NEUTROPHILS % (AUTO) 85.6 % (43.0-81.0); PLATELET COUNT (AUTO) 127 K/uL (150-450); RED BLOOD CELL COUNT(AUTO) 3.55 MIL/uL (4.5-6.0); RED CELL DISTRIBUTION WIDTH 20.8 % (11.5-15.0); WHITE BLOOD COUNT (AUTO) 7.3 K/uL (4.3-11.0)
--- NOTE | 2023-10-13 07:30 | NUR ---
JUDICIAL REPORTER AM NOTES PT IN BED, AWAKE, A/O X 2-3, WITH CONFUSION. ON 2LPM VIA NC, TOLERATING WELL. O2 SAT AT 94%. NO SOB NOTED AT THIS TIME. RESPIRATION UNLABORED. SB -58 WITH BBB. DENIES CHEST PAIN/DISCOMFORT. IV ACCESS ON L WRIST 20G, SL, FLUSHES WELL, SITE CLEAR. R CW PERMCATH C/D/I. WITH PUREWICK IN PLACE DRAINING URINE VIA SUCTION. WILL PERFORM PRESCRIBED WOUND TREATMENT AND SKIN CARE MANAGEMENT. WILL CONTINUE 1:1 SITTER FOR SAFETY.SAFETY MEASURES IMPLEMENTED, BED IN LOWEST LOCKED POSITION, BED ALARM ON, SIDE RAILS UP X3, CALL LIGHT WITHIN REACH. WILL CONTINUE TO MONITOR.
[2023-10-13 08:17] LABS: ALBUMIN 2.3 g/dL (3.4-5.0); BILIRUBIN,DIRECT 1.9 mg/dL (0.0-0.2); BILIRUBIN,TOTAL 2.7 mg/dL (0.2-1.0); CREATININE 3.3 mg/dL (0.6-1.3); MAGNESIUM 1.6 mg/dL (1.8-2.4); PHOSPHORUS 2.8 mg/dL (2.5-4.9); POTASSIUM 3.4 mmol/L (3.5-5.1); TOTAL PROTEIN, SERUM 6.4 g/dL (6.4-8.2)
--- NOTE | 2023-10-13 09:30 | NUR ---
RN NOTES DUE MEDS GIVEN
--- NOTE | 2023-10-13 11:15 | NUR ---
RN NOTES DR. KWONG AWARE OF PT'S POTASSIUM LEVEL OF 3.4. NNO
[2023-10-13] MEDS ORDERED: NEPRO VAN 237 ML CAN PO PRN (12:30)
[2023-10-13] MEDS: ACETAMINOPHEN 325 MG TABLET PO PRN (12:36)
--- NOTE | 2023-10-13 12:55 | NUR ---
JAZMYN PAZ AT BEDSIDE
--- NOTE | 2023-10-13 19:02 | NUR ---
POWDER OPERATOR CLOSING NOTES PT IN BED, AWAKE, A/O X 2-3, WITH CONFUSION. ON 2LPM VIA NC, TOLERATING WELL. O2 SAT AT 100%. NO SOB NOTED AT THIS TIME. RESPIRATION UNLABORED. SB -58 WITH BBB. DENIES CHEST PAIN/DISCOMFORT. IV ACCESS ON L WRIST 20G, SL, FLUSHES WELL, SITE CLEAR. R CW PERMCATH C/D/I. WITH PUREWICK IN PLACE DRAINING URINE VIA SUCTION. PRESCRIBED WOUND TREATMENT AND SKIN CARE MANAGEMENT AND PM CARE DONE EARLIER. WILL CONTINUE 1:1 SITTER FOR SAFETY.SAFETY MEASURES IMPLEMENTED, BED IN LOWEST LOCKED POSITION, BED ALARM ON, SIDE RAILS UP X3, CALL LIGHT WITHIN REACH. WILL ENDORSE TO NEXT SHIFT FOR MARIA M.
--- NOTE | 2023-10-13 19:20 | NUR ---
OPERATOR AUTOMATED PROCESS OPENING NOTE RECEIVED PT IN BED, A/O X 2-3, WITH CONFUSION, SITTER AT BEDSIDE. ON O2 VIA NC AT 2L, TOLERATING WELL. ON TELE MONITOR CURRENTLY SHOWING, SINUS RHYTHM, HR 60s. WITH RIGHT CHEST WALL PERMACATH. WITH IV ACCESS ON LEFT WRIST G#20. WITH PUREWICK CONNECTED TO WALL SUCTION, YELLOW URINE NOTED. SAFETY MEASURES IMPLEMENTED: BEC LOCKED AND IN LOWEST POSITION, BED ALARM ON, SIDE RAILS UP, CALL LIGHT AND TABLE WITHIN EASY REACH. WILL CONTINUE PLAN OF CARE.
[2023-10-14] VITALS (13 sets, daily range): BP systolic 103–118; BP diastolic 57–77; TEMP 97.7–98.4; O2SAT 95–100
--- NOTE | 2023-10-14 01:30 | NUR ---
RT NOTE PT REFUSED HHN TX @ THIS TIME. SAT 97% ON 2L NC. NO RESP DISTRESS NOTED.
[2023-10-14 06:33] LABS: BASOPHILS % (AUTO) 0.7 % (0.0-2.0); EOSINOPHILS % (AUTO) 0.2 % (0.0-6.0); HEMATOCRIT 32 % (39-51); HEMOGLOBIN 10.5 g/dL (13.5-17.5); LYMPHOCYTES # (AUTO) 0.2 K/uL (0.8-4.8); LYMPHOCYTES % (AUTO) 3.1 % (20.0-44.0); MEAN CORPUSCULAR HEMOGLOBIN 29 PG (26.0-33.0); MEAN CORPUSCULAR HGB CONC 33 g/dl (31.0-36.0); MEAN CORPUSCULAR VOLUME 90 fL (80-96); MONOCYTES # (AUTO) 0.7 K/uL (0.1-1.30); MONOCYTES % (AUTO) 10.4 % (2.0-12.0); NEUTROPHILS # (AUTO) 6.1 K/uL (1.8-8.9); NEUTROPHILS % (AUTO) 85.6 % (43.0-81.0); PLATELET COUNT (AUTO) 120 K/uL (150-450); RED BLOOD CELL COUNT(AUTO) 3.58 MIL/uL (4.5-6.0); WHITE BLOOD COUNT (AUTO) 7.1 K/uL (4.3-11.0)
--- NOTE | 2023-10-14 06:38 | NUR ---
QUALITY INSPECTOR CLOSING NOTE PT IN BED, A/O X 2-3, SITTER AT BEDSIDE. ON O2 VIA NC AT 2L, TOLERATING WELL. ON TELE MONITOR CURRENTLY SHOWING, SINUS RHYTHM, HR 60s. WITH RIGHT CHEST WALL PERMACATH. WITH IV ACCESS ON LEFT WRIST G#20. WITH PUREWICK CONNECTED TO WALL SUCTION, YELLOW URINE NOTED. DUE MEDS GIVEN ORDERED. SAFETY MEASURES MAINTAINED: BED LOCKED AND IN LOWEST POSITION, BED ALARM ON, SIDE RAILS UP, CALL LIGHT AND TABLE WITHIN EASY REACH. WILL ENDORSE TO AM SHIFT NURSE FOR MARIA M.
[2023-10-14 06:48] LABS: CALCIUM, SERUM 8.5 mg/dL (8.5-10.1); CREATININE 3.8 mg/dL (0.6-1.3); POTASSIUM 3.7 mmol/L (3.5-5.1)
[2023-10-14 06:54] LABS: MAGNESIUM 1.7 mg/dL (1.8-2.4); PHOSPHORUS 3.2 mg/dL (2.5-4.9)
[2023-10-14] MEDS: PANTOPRAZOLE 40 MG TABLET.DR PO SCH (10:33)
--- NOTE | 2023-10-14 11:05 | NUR ---
DR KWONG AT THE UNIT AND WAS MADE AWARE THAT MORNING BP MEDS/DIURETIC WERE NOT GIVEN D/T DECREASED BP READING AND HD TREATMENT TODAY'S ORDER; ALSO MG =1.7 . NO NEW ORDER
--- NOTE | 2023-10-14 19:08 | NUR ---
ALL NEEDS ATTENDED/RENDERED. MEDS GIVEN PER ORDER. KEPT PATIENT CLEAN AND COMFORTABLE. ALL SAFETY MEASURES IN-PLACE. ENDORSED TO NURSE JENNIIN FOR CONT OF CARE.
--- NOTE | 2023-10-14 19:30 | NUR ---
RN OPENING NOTE RECEIVED PT IN BED. A/O X3, NO DISTRESS AND DISCOMFORT NOTED. SITTER AT BED SIDE. ON 2L O2 VIA NC, NO SOB NOTED. LASER BEAM MACHINE OPERATOR IN PLACE READING SR WITH BBB, HR 70. IV ACCESS L WRIST 20G, RCW HD PERMACATH. ALL SAFETY PRECAUTION SIN PLACE: BED LOCKED AND IN LOWEST POSITION, SIDE LAGUERRE;S UPX3, CALL LIGHT AND TABLE WITHIN REACH. WILL CONTINUE PLAN OF CARE.
[2023-10-14] MEDS: AZITHROMYCIN 250 MG TABLET PO SCH (22:39)
--- NOTE | 2023-10-14 23:15 | NUR ---
HD STARTED @ 1921 AND END 2314. VITAL SIGNS WITHIN NORMAL LIMIT. 2L REMOVED.
[2023-10-15] VITALS (12 sets, daily range): BP systolic 95–127; BP diastolic 52–74; TEMP 97.9–98.6; O2SAT 95–100
[2023-10-15 07:05] LABS: BASOPHILS % (AUTO) 0.3 % (0.0-2.0); EOSINOPHILS % (AUTO) 0.2 % (0.0-6.0); HEMATOCRIT 33 % (39-51); HEMOGLOBIN 10.8 g/dL (13.5-17.5); LYMPHOCYTES # (AUTO) 0.3 K/uL (0.8-4.8); LYMPHOCYTES % (AUTO) 4.8 % (20.0-44.0); MEAN CORPUSCULAR HEMOGLOBIN 30 PG (26.0-33.0); MEAN CORPUSCULAR HGB CONC 33 g/dl (31.0-36.0); MEAN CORPUSCULAR VOLUME 90 fL (80-96); MONOCYTES # (AUTO) 0.7 K/uL (0.1-1.30); MONOCYTES % (AUTO) 11.2 % (2.0-12.0); NEUTROPHILS # (AUTO) 5.2 K/uL (1.8-8.9); NEUTROPHILS % (AUTO) 83.5 % (43.0-81.0); PLATELET COUNT (AUTO) 118 K/uL (150-450); RED BLOOD CELL COUNT(AUTO) 3.67 MIL/uL (4.5-6.0); RED CELL DISTRIBUTION WIDTH 20.9 % (11.5-15.0); WHITE BLOOD COUNT (AUTO) 6.2 K/uL (4.3-11.0)
--- NOTE | 2023-10-15 07:10 | NUR ---
RN CLOSING NOTE PT IN BED. A/O X3, NO DISTRESS AND DISCOMFORT NOTED. SITTER AT BED SIDE. ON 2L O2 VIA NC, NO SOB NOTED. HIDE CLEANER IN PLACE READING SR WITH BBB, HR 71. IV ACCESS L WRIST 20G, RCW HD PERMACATH. ALL SAFETY PRECAUTION SIN PLACE: BED LOCKED AND IN LOWEST POSITION, SIDE LAGUERRE;S UPX3, CALL LIGHT AND TABLE WITHIN REACH. WILL ENDORSE TO NEXT SHIFT NURSE FOR MARIA M.
[2023-10-15 07:29] LABS: CALCIUM, SERUM 8.3 mg/dL (8.5-10.1); CREATININE 2.9 mg/dL (0.6-1.3); MAGNESIUM 1.8 mg/dL (1.8-2.4); PHOSPHORUS 2.3 mg/dL (2.5-4.9); POTASSIUM 3.4 mmol/L (3.5-5.1)
--- NOTE | 2023-10-15 07:45 | NUR ---
RN OPENING NOTE Received pt in bed awake, A/O X4 and able to make needs known. Pt continues on 02 @1lpm via n/c. Pt on cardiac monitoring. IV access to left wrist #20g and right chest wall permacath. Safety measures in place. Bed in low and locked position. Call light in reach. Plan of care ongoing.
[2023-10-15] MEDS ORDERED: BUDE1AMP IH (12:11)
[2023-10-15] MEDS ORDERED: AMOX-427 PO (12:11)
--- NOTE | 2023-10-15 16:40 | NUR ---
IN REGARDS TO OUTPATIENT HD COMPANY, PER PATIENT'S BROTHER SHANTELLE ([phone]), OUTPATIENT DIALYSIS WAS ARRANGED BY [facility]LLY COLLAZO. HOWEVER, AFTER DISCHARGE, PATIENT WAS SOON AFTER ADMITTED TO [facility]. OUTPATIENT DIALYSIS COMPANY CONTACTED SHANTELLE TO ARRANGE HD SCHEDULE, AND UPON RELAYING THAT PATIENT WAS ADMITTED TO [facility], DIALYSIS COMPANY STATED THAT THEY WOULD CONTACT [facility] [employer]EN[employer] SPECIALIST TO ARRANGE OUTPATIENT HD SCHEDULE. PER [employer] EQUIPMENT TENDER EFREN'S REQUEST, LIZZY ASTORGA REQUESTED THAT SHANTELLE CONTACT [facility] TO GET NAME OF OUTPATIENT DIALYSIS COMPANY. SHANTELLE LATER RELAYED THAT HE CONTACTED THEM AND THAT HE WAS TOLD THAT [facility] COLLAZO WOULD CONTACT OUTPATIENT DIALYSIS COMPANY TO ARRANGE SCHEDULE WITH [facility] [employer] EQUIPMENT TENDER.
--- NOTE | 2023-10-15 19:30 | NUR ---
RN OPENING NOTE RECEIVED PT IN BED. A/O X3, NO DISTRESS AND DISCOMFORT NOTED. SITTER AT BED SIDE. ON ROOM AIR, NO SOB NOTED.. IV ACCESS L WRIST 20G, RCW HD PERMACATH. MALE PUREWICK IN PLACE SUCTIONING YELLOW URINE. ALL SAFETY PRECAUTION SIN PLACE: BED LOCKED AND IN LOWEST POSITION, SIDE RAILS UPX3, CALL LIGHT AND TABLE WITHIN REACH. WILL CONTINUE PLAN OF CARE.
[2023-10-16] VITALS (8 sets, daily range): BP systolic 96–111; BP diastolic 53–64; TEMP 98.1–98.4; O2SAT 96–100
[2023-10-16 06:11] LABS: BASOPHILS % (AUTO) 0.4 % (0.0-2.0); EOSINOPHILS % (AUTO) 0.4 % (0.0-6.0); HEMATOCRIT 35 % (39-51); HEMOGLOBIN 11.5 g/dL (13.5-17.5); LYMPHOCYTES # (AUTO) 0.5 K/uL (0.8-4.8); LYMPHOCYTES % (AUTO) 5.9 % (20.0-44.0); MEAN CORPUSCULAR HEMOGLOBIN 29 PG (26.0-33.0); MEAN CORPUSCULAR HGB CONC 33 g/dl (31.0-36.0); MEAN CORPUSCULAR VOLUME 89 fL (80-96); MONOCYTES # (AUTO) 1.1 K/uL (0.1-1.30); MONOCYTES % (AUTO) 14.2 % (2.0-12.0); NEUTROPHILS % (AUTO) 79.1 % (43.0-81.0); PLATELET COUNT (AUTO) 127 K/uL (150-450); RED BLOOD CELL COUNT(AUTO) 3.93 MIL/uL (4.5-6.0); RED CELL DISTRIBUTION WIDTH 20.7 % (11.5-15.0); WHITE BLOOD COUNT (AUTO) 7.6 K/uL (4.3-11.0)
--- NOTE | 2023-10-16 06:32 | NUR ---
RN CLOSING NOTE PT IN BED. A/O X3, NO DISTRESS AND DISCOMFORT NOTED. SITTER AT BED SIDE. ON ROOM AIR, NO SOB NOTED. IV ACCESS L WRIST 20G, RCW HD PERMA CATH. MALE PUREWICK IN PLACE SUCTIONING YELLOW URINE. URINE OUT PUT 1200- ML. NO BM. ALL DUE MEDS GIVEN. KEPT PT DRY AND CLEAN. BED LOCKED AND IN LOWEST POSITION, SIDE RAILS UPX3, CALL LIGHT AND TABLE WITHIN REACH. ENDORSE TO NEXT SHIFT NURSE FOR MARIA M.
[2023-10-16 06:50] LABS: CALCIUM, SERUM 8.6 mg/dL (8.5-10.1); CREATININE 2.9 mg/dL (0.6-1.3); MAGNESIUM 1.8 mg/dL (1.8-2.4); PHOSPHORUS 2.3 mg/dL (2.5-4.9); POTASSIUM 3.4 mmol/L (3.5-5.1)
--- NOTE | 2023-10-16 07:41 | NUR ---
RN OPENING NOTE Received pt in bed awake, A/O X3 and able to make needs known. Pt continues on room air, no respiratory distress noted. No SOB. IV access to left wrist #20g and right chest wall permacath. Safety measures in place. Bed in low and locked position. Call light in reach. Plan of care ongoing.
--- NOTE | 2023-10-16 19:28 | NUR ---
RN CLOSING NOTE Pt in bed awake, A/O X3 and able to make needs known. Pt continues on room air, no respiratory distress noted. No SOB. IV access to left wrist #20g and right chest wall permacath. Awaiting dialysis tonight, then discharged home. Safety measures in place. Bed in low and locked position. Call light in reach. Plan of care ongoing.
--- NOTE | 2023-10-16 19:45 | NUR ---
RN OPENING NOTE RECEIVED PT IN BED. AWAKE, A/O X 3 AND VERBALLY RESPONSIVE. BREATHING EVEN AND UNLABORED. SITTER AT BED SIDE. ON ROOM AIR AND PT TOLERATED WELL. IV ACCESS L WRIST 20G INTACT AND PATENT. NO S/S OF INFILTRATIONS. RCW HD PERMA-CATH IN PLACE. COVERED BY DRY DRESSING. NO C/O PAIN OR DISCOMFORT. NO ACUTE DISTRESS. ALL SAFETY MEASURES IN PLACE. BED IN LOWEST POSITION AND LOCKED. SIDE RAILS UP X3, PLACE CALL LIGHT WITHIN REACH. WILL CONTINUE TO MONITOR
[2023-10-16] MEDS ORDERED: ALBUMIN 25% 100 ML IV ONE (21:47)
[2023-10-16] MEDS: ALBUMIN 25% 25 GM in PREMIX 1 EA IV PRN (21:49)
--- NOTE | 2023-10-16 22:50 | NUR ---
RN NOTES: HD COMPLETED. 1.5 L OUT. ALBUMIN GIVEN DURING DIALYSIS. V/S STABLE
[2023-10-17 01:29] VITALS: O2SAT 98
--- NOTE | 2023-10-17 01:29 | NUR ---
RT NOTE PT REFUSED TX AT THIS TIME. NO SOB NOTED.
--- NOTE | 2023-10-17 02:00 | NUR ---
RN OPENING NOTES RECEIVED REPORT FROM JAZMYN EDMOND FOR CONTINUITY OF CARE. PATIENT IS IN BED, A/O X 3. ON ROOM AIR, RESPIRATION IS EVEN AND UNLABORED, SATURATING WELL. PATIENT HAS AN IV ACCESS ON LEFT WRIST #20G S/L AND RIGHT CHEST PERMCATH FOR HD. HD WAS DONE ON 10/15 WITH 1.5L OUTPUT. NO COMPLAINS OF PAIN OR DISCOMFORT NOTED AT THIS TIME. SAFETY MEASURES IN PLACED. CALL LIGHT WITHIN REACH.
[2023-10-17 02:10] LABS: HEPATITIS B CORE AB, IgM Negative (Negative); HEPATITIS B CORE AB, TOTAL Positive (Negative); HEPATITIS B SURFACE AB Reactive (.)
[2023-10-17 04:00] VITALS: BP 128/85; TEMP 97.7; O2SAT 97
--- NOTE | 2023-10-17 07:04 | NUR ---
RN CLOSING NOTES PATIENT IS IN BED, A/O X 3. PATIENT HAS SITTER 1:1. ON ROOM AIR, RESPIRATION IS EVEN AND UNLABORED, SATURATING WELL. PATIENT HAS AN IV ACCESS ON LEFT WRIST #20G S/L AND RIGHT CHEST PERMCATH FOR HD. NO COMPLAINS OF PAIN OR DISCOMFORT NOTED AT THIS TIME. SAFETY MEASURES IN PLACED. CALL LIGHT WITHIN REACH. WILL ENDORSE TO AM NURSE FOR CONTINUITY OF CARE.
--- NOTE | 2023-10-17 07:43 | NUR ---
RN OPENING NOTES RECEIVED PATIENT IS IN BED, A/O X 3. PATIENT HAS SITTER 1:1. ON ROOM AIR, RESPIRATION IS EVEN AND UNLABORED, SATURATING WELL. NO S/S OF DISTRESS OR SOB. PATIENT HAS AN IV ACCESS ON LEFT WRIST #20G S/L AND RIGHT CHEST PERMCATH FOR HD. NO COMPLAINS OF PAIN OR DISCOMFORT NOTED AT THIS TIME. SAFETY MEASURES IN PLACED. CALL LIGHT WITHIN REACH. WILL CONTINUE POC.
[2023-10-17 08:43] VITALS: BP 106/69
--- NOTE | 2023-10-17 09:28 | NUR ---
RN NOTE PT REFUSED SCHEDULED RISPERIDONE. PT STATED, "I DID NOT COME HERE FOR ANYTHING PSYCH RELATED. I DO NOT WANT TO TAKE ANYTHING PSYCH RELATED." PT EDUCATED ON USES OF MEDICATION AND IMPORTANCE OF ADHERING TO MEDICATION. PT INSISTS ON REFUSAL. WILL CONTINUE TO MONITOR.
--- NOTE | 2023-10-17 09:30 | NUR ---
RN NOTE PT REFUSED SCHEDULED LASIX AND ISOSORBIDE. PT STATES, "I DID NOT TAKE THAT MEDICATION BEFORE THIS PLACE, I AM NOT GOING TO TAKE IT NOW IF MY BLOOD PRESSURE IS NORMAL." EDUCATION PROVIDED ON USES AND IMPORTANCE OF ADHERING TO MEDICATION REGIMEN ORDERED BY MD, PT INSISTS ON REFUSAL. WILL CONTINUE POC.
--- NOTE | 2023-10-17 11:58 | NUR ---
WRINKLE CHASER NOTE PT DISCHARGED IN STABLE MEDICAL CONDITION. AOx3-4. V/S TAKEN, STABLE, RECORDED. NO IV ACCES. NAME ARM BADN REMOVED. SKIN ASSESSMENT DONE AND PICTURES TAKEN. ALL BELONGINGS CHECKED AND LIST SIGNED, HEALTH TEACHING AND DISCHARGE INSTRUCTIONS GIVEN AND VERBALIZED UNDERSTANDING. INSTRUCTED PT TO GO TO NEAREST ER OR DIAL 911 IN CASE OF EMERGENCY. INSTRUCTED PT TO GO TO PCP IN 1-2 WEEKS. DISCUSSED PRESCRIPTIONS WITH PT. PT LEFT VIA WHEELCHAIR ACCOMAPNIED BY RN WITH NO S/S OF DISTRESS. CHARGE NURSE MADE AWARE OF DISCHARGE
== END 2023-10-17 13:16 | disposition home or self-care (01) | DRG 177 ==
LOC: ER 22:09 → TELE1 10-12 00:28 → MEDSG1 10-15 09:01
PROVIDERS: ADMIT Student in an Organized Health Care Education/Training Program; ATTEND Nurse Practitioner Acute Care
PROC: 5A1D70Z Performance of Urinary Filtration, Intermittent, Less than 6 Hours Per Day (ICD-10-PCS; principal; 2023-10-12)
DX: J15.69 Pneumonia due to other Gram-negative bacteria (principal); I21.4 Non-ST elevation (NSTEMI) myocardial infarction; J96.01 Acute respiratory failure with hypoxia; L89.323 Pressure ulcer of left buttock, stage 3; L89.313 Pressure ulcer of right buttock, stage 3; I50.23 Acute on chronic systolic (congestive) heart failure; N18.6 End stage renal disease; I13.2 Hypertensive heart and chronic kidney disease with heart failure and with stage 5 chronic kidney disease, or end stage renal disease; E44.0 Moderate protein-calorie malnutrition; E87.20 Acidosis, unspecified; R45.851 Suicidal ideations; I42.9 Cardiomyopathy, unspecified; I27.20 Pulmonary hypertension, unspecified; I48.91 Unspecified atrial fibrillation; M89.8X9 Other specified disorders of bone, unspecified site; Z89.611 Acquired absence of right leg above knee; Z89.612 Acquired absence of left leg above knee; Z99.2 Dependence on renal dialysis; R16.0 Hepatomegaly, not elsewhere classified; Z95.810 Presence of automatic (implantable) cardiac defibrillator; F20.9 Schizophrenia, unspecified; I25.10 Atherosclerotic heart disease of native coronary artery without angina pectoris; F32.9 Major depressive disorder, single episode, unspecified; R74.01 Elevation of levels of liver transaminase levels; F17.210 Nicotine dependence, cigarettes, uncomplicated; E11.51 Type 2 diabetes mellitus with diabetic peripheral angiopathy without gangrene; E11.22 Type 2 diabetes mellitus with diabetic chronic kidney disease; D64.9 Anemia, unspecified; Z68.22 Body mass index [BMI] 22.0-22.9, adult
CPT/HCPCS: 36415; 71045-TC; 80048-TC; 80076-TC; 83605-TC; 83735-TC; 83880; 84100-TC; 84484-TC; 85025-TC; 85730-TC; 86704; 86705; 86706; 86803; 87040-TC; 87340; 90935-TC; 94640-TC; 94760-TC; 94762-TC; 94799-TC; 97110-TC; 97112-TC; 97530-TC; 97535-TC; 98960; A4216; A4223; A6403; G0378; J0456; J0696; J1644; J1940; J2470; J7030; J7060; P9047